=== PATIENT | female | born 1965 ===

== ENCOUNTER → 2025-05-03 10:29 | Outpatient (CLI) | payer OTHER ==
[2025-05-03 11:05] LABS: PH,URINE 5.5 (5.0-8.0); URINE APPEARANCE Cloudy; URINE BILIRRUBIN Negative (NEGATIVE); URINE BLOOD Negative; URINE COLOR Dark Yellow; URINE GLUCOSE Negative (NEGATIVE); URINE KETONE Trace (NEGATIVE); URINE LEUKOCYTE Small; URINE NITRATE Negative; URINE PROTEIN Negative (NEGATIVE)
[2025-05-03 11:06] LABS: BASO % 0.6 % (0.1-1.2); EOS # 0.12 (0.04-0.54); EOS % 1.9 % (0.7-7.0); HEMATOCRIT 36.5 % (34.1-44.9); LYMPH # 1.38 (1.18-3.74); LYMPH % 21.3 % (19.3-53.1); MEAN CORPUSCULAR HEMOGLOBIN 27.7 pg (25.6-32.2); MONO # 0.38 (0.24-0.82); MONO % 5.9 % (4.7-12.5); NEUT # 4.53 (1.56-6.13); PLATELET COUNT 243 K/uL (163-369); RED BLOOD COUNT 4.33 M/uL (3.93-5.22); RED CELL DISTRIBUTION WIDTH 12.8 % (11.6-14.4)
[2025-05-03 11:09] LABS: URINE BACTERIA 4697.4 uL (0.0-1933); URINE EPITHELIAL CELLS 72.6 uL (0.0-38.8); URINE RBC 15.4 uL (0.0-20.8); URINE WBC 48.1 uL (0.0-23.2)
[2025-05-03 11:11] LABS: URINE CAST 0.58 uL (0.0-1.40)
[2025-05-03 12:15] LABS: ALBUMIN 3.6 gm/dL (3.4-5.0); BILIRUBIN TOTAL 0.65 mg/dL (0.3-1.2); BILIRUBIN,CONJUGATED 0.17 mg/dL (0.0-0.2); BILIRUBIN,UNCONJUGATED 0.48 mg/dL (0.0-0.6); CALCIUM 9.3 mg/dL (8.5-10.1); CHOL HDL RATIO 3.3 (0-5.0); CREATININE SERUM 0.73 mg/dL (0.55-1.02); GFR 82.17; GLOBULINA 3.3 G/DL (2.4-3.5); POTASSIUM 4.19 mEq/L (3.5-5.1); TOTAL PROTEIN 6.9 gm/dL (6.4-8.2)
[2025-05-03 12:16] LABS: T4 TOTAL 11.6 UG/DL (4.8-13.9)
[2025-05-03 12:21] LABS: ob NEGATIVE (NEGATIVE)
[2025-05-03 12:45] LABS: T3 TOTAL 0.981 ng/ml (0.846-2.02); VITAMIN D3 25 HYDROXY 39.89 ng/ml (30-120)
[2025-05-03 13:54] LABS: TSH 0.267 uIU/mL (0.358-3.74)
== END | disposition home or self-care (01) ==
LOC: LAB 10:29
PROVIDERS: ATTEND Internal Medicine Geriatric Medicine
DX: E11.9 Type 2 diabetes mellitus without complications (principal); Z12.11 Encounter for screening for malignant neoplasm of colon; R78.5 Finding of other psychotropic drug in blood; E55.9 Vitamin D deficiency, unspecified; E03.9 Hypothyroidism, unspecified; R73.03 Prediabetes

== ENCOUNTER 2025-06-24 09:10 | Outpatient (CLI) | payer OTHER | END 2025-06-24 09:14 | disposition home or self-care (01) | LOC: SONOGRAMA 09:10 | PROVIDERS: ATTEND Internal Medicine Geriatric Medicine | DX: R80.9 Proteinuria, unspecified (principal); E04.1 Nontoxic single thyroid nodule; E03.4 Atrophy of thyroid (acquired); M19.90 Unspecified osteoarthritis, unspecified site ==

== ENCOUNTER 2025-08-31 09:57 | Outpatient (CLI) | payer OTHER ==
[2025-08-31 11:02] LABS: T4 FREE 1.09 NG/ML (0.76-1.46); TSH 0.407 uIU/mL (0.358-3.74)
== END 2025-08-31 10:01 | disposition home or self-care (01) ==
LOC: LAB 09:57
DX: E03.8 Other specified hypothyroidism (principal); C73 Malignant neoplasm of thyroid gland